=== PATIENT | male | born 1990 | race Caucasian/White ===

== ENCOUNTER 2024-04-19 16:04 | Outpatient (CLI) | payer OTHER, SELFPAY ==
--- NOTE | ~2024-04-19 | XR_ITS ---
EXAMINATION: XR abdomen/kub 1V DATE: 04/19/2024 16:28 INDICATION: Left lower quadrant abdominal pain. TECHNIQUE: A supine view of the abdomen on 2 radiographs was obtained. COMPARISON: None. FINDINGS: There are no dilated loops of bowel. There is a moderate volume of stool in the colon. Ther e are calcifications in the pelvis including 2 mm calcifications in the area of the distal ureters on either side. IMPRESSION: 1. Calcifications in the pelvis, probably phleboliths. Distal ureteral stone cannot be excluded on ei ther side. Reviewed, dictated and finalized at location A. PROJECTOR OPERATOR IMPRESSION: 1. Calcifications in the pelvis, probably phleboliths. Distal ureteral stone ca nnot be excluded on either side.
--- OUTSIDE RECORDS SUMMARY | 2024-04-19 16:41 | XMS_ITS | Referral Summary ---
Author Organization [facility] Address [address] [place] [address] Care Team Providers Care Alteration Worker Name Role Phone No, Physician Primary Care Provider [phone] Allergies No known active allergies Medications No known medications Active Problems No known active problems Social History Tobacco Use Types Packs/Day Years Used Date Smoking Tobacco: Never Smokeless Tobacco: Never Personal Safety Answer Date Recorded Getting School Help Needed Not on file 06/06 Sex and Gender Information Value Date Recorded Sex Assigned at Not on file Legal Sex Male 1:14 AM EDGING MACHINE OPERATOR Gender Identity Not on file Sexual Orientation Not on file Last Filed Vital Signs Vital Sign Reading Time Taken Comments Blood Pressure - - Pulse - - Temperature - - Respiratory Rate - - Oxygen Saturation - - Inhaled Oxygen Concentration - - Weight 90.7 kg (200 lb) 01/31/2020 5:50 PM EDGING MACHINE OPERATOR Height 182.9 cm (6') 01/31/2020 5:50 PM EDGING MACHINE OPERATOR Body Mass Index 27.12 01/31/2020 5:50 PM EDGING MACHINE OPERATOR Plan of Treatment Not on file Insurance [facility] Care Teams Alteration Worker Relationship Specialty Start Date End Date No, Physician PCP - General 01/31/20
--- OUTSIDE RECORDS SUMMARY | 2024-04-19 16:41 | XMS_ITS | Encounter Summary ---
Author Organization [facility] Address [address] [place] [address] Care Team Providers Care Truck Packer Name Role Phone Sienna Sloan MD Primary Care Provider [phone] Encounter Details Date Type Department Care Team (Late st Contact Info) Description 04/15/2024 External Device Data STL ABSTRACTION Provider, Abstract NO ADDRESS ON FILE Social History Tobacco Use Types Packs/Day Years Used Date Smoking Tobacco: Never Smokeless Tobacco: Never Comments:Used to use chewing tobacco in college Alcohol Use Standard Drinks/Week Comments Yes 7 (1 standard drink = 0.6 oz pur e alcohol) weekends Sex and Gender Information Value Date Recorded Sex Assigned at Not on file Legal Sex Male 3:30 PM CDT Gender Identity Not on file Sexual Orientation Not on file documented as of this encounter Plan of Treatment Upcoming Encounters Date Type Department Care Team (Late st Contact Info) Description 04/26/2024 8:30 AM BUNDLE BREAKER Office Visit [facility] [employer] [place] [address] [address] Reyna Elaine, ANP [address] [facility] [address] [facility] [address] [place] [address] documented as of this encounter Visit Diagnoses Not on filedocumented in this encounter Care Teams Truck Packer Relationship Specialty Start Date End Date Sienna Sloan MD [address] [place] [address] PCP - General Internal Medicine 03/26/24 documented as of this encounter
--- OUTSIDE RECORDS SUMMARY | 2024-04-19 16:41 | XMS_ITS | Clinical Summary ---
Author Organization [facility] [employer] Address [address] [address] Care Team Providers Care Complaint Investigations Officer Name Role Phone Sienna Sloan MD Primary Care Provider [phone] Allergies No known active allergies Medications sildenafiL (VIAGRA) 100 mg tabletIndication s:Other male erectile dysfunction Take 1 Tablet (100 mg) by mouth 1 time daily as needed for Erectile Dysfunction. 5 Tablet 4 Active ergocalciferol (VITAMIN D2) 50,000 unit capsuleIndicatio ns:Vitamin D deficiency Take 1 Capsule (50,000 Units) by mouth every 7 days. 12 Capsule 4 Active Active Problems Problem Noted Date Diagnosed Date Asymptomatic varicose veins 08/13/2022 Encounters Date Type Department Care Team Description 04/15/2024 External Device Data STL ABSTRACTION Provider, Abstract 03/31/2024 8:20 AM ENTRY LEVEL ACCOUNT REPRESENTATIVE Clinical Support [facility] [employer] [place] [address] [place] [address] LLQ abdominal pain 03/30/2024 Telephone [facility] [employer] [place] [address] [place] [address] Reyna Elaine ANP Follow Up 03/30/2024 Orders Only [facility] [employer] [place] [address] [place] [address] Reyna Elaine, ZIA 03/26/2024 1:00 PM ENTRY LEVEL ACCOUNT REPRESENTATIVE Office Visit [facility] [employer] [place] [address] [place] [address] Natalie Zapien, PADMINI LLQ abdominal pain (Primary Dx) from Last 3 Months Immunizations Immunization Administration Dates Next Due (ADACEL/BOOSTRIX)(10 YR UP) TDAP VACCINE, 0.5ML, IM 04/24/2021 Influenza Seasonal Unspecified Formulation IM Family History Medical History Relation Name Comments Asthma Brother Gregg Mejia No Known Problems Father Liver Cancer Maternal Grandfather Sonido Cash Lung Cancer Maternal Grandfather Sonido Cash Alzheimer's Disease Maternal Grandmother No Known Problems Mother Unknown Paternal Grandfather Unknown Paternal Grandmother Relation Name Status Comments Brother Gregg Mejia Alive Father Alive elevated psa Maternal Grandfather Sonido Cash Maternal Grandmother Alive Mother Alive Paternal Grandfather cirrhos is Paternal Grandmother Social History Tobacco Use Types Packs/Day Years [...] Sign Reading Time Taken Comments Blood Pressure 116/68 03/26/2024 12:57 PM ENTRY LEVEL ACCOUNT REPRESENTATIVE Pulse 77 03/26/2024 12:57 PM ENTRY LEVEL ACCOUNT REPRESENTATIVE Temperature 36.8 ??C (98.3 ??F) 03/26/2024 12:[address] Respiratory Rate 18 03/26/2024 12:57 PM ENTRY LEVEL ACCOUNT REPRESENTATIVE Oxygen Saturation 98% 03/26/2024 12:57 PM ENTRY LEVEL ACCOUNT REPRESENTATIVE Inhaled Oxygen Concentration - - Weight 93.9 kg (207 lb) 03/26/2024 12:57 PM ENTRY LEVEL ACCOUNT REPRESENTATIVE Height 180.3 cm (5' 11 ) 03/26/2024 12:57 PM ENTRY LEVEL ACCOUNT REPRESENTATIVE Body Mass Index 28.87 03/26/2024 12:57 PM ENTRY LEVEL ACCOUNT REPRESENTATIVE Plan of Treatment Upcoming Encounters Date Type Department Care Team (Late st Contact Info) Description 04/26/2024 8:30 AM ENTRY LEVEL ACCOUNT REPRESENTATIVE Office Visit [facility] at Work [employer] [place] [address] [place] [id number] Reyna Elaine, ANP [address] [place] [address] Health Maintenance Due Date Last Done Comments HEPATITIS B VACCINES (1 of 3 - 19+ 3-dose series) 02/12/2008 INFLUENZA VACCINE (#1) 2023 04/03/2021 COVID-19 Vaccine (2 - 2023- season) 2023 08/02/2020 Pre-Diabetes and Diabetes Screening 04/04/2026 04/04/2023, 09/03/2021 DTAP/TDAP/TD VACCINES (2 - Td or Tdap) 04/24/2031 04/24/2021 HPV VACCINES Aged Out No longer eligi ble based on patient's age to complete this topic Procedures Procedure Name Priority Date/Time Associated Diagnosis Comments CBC WITH DIFFERENTIAL Routine 03/31/2024 8:16 AM ENTRY LEVEL ACCOUNT REPRESENTATIVE LLQ abdominal pain COMPREHENSIVE METABOLIC PANEL Routine 03/31/2024 8:16 AM ENTRY LEVEL ACCOUNT REPRESENTATIVE LLQ abdominal pain C-REACTIVE PROTEIN Routine 03/31/2024 8: 16 AM ENTRY LEVEL ACCOUNT REPRESENTATIVE LLQ abdominal pain COMPREHENSIVE METABOLIC PANEL Routine 03/26/2024 1:23 PM ENTRY LEVEL ACCOUNT REPRESENTATIVE LLQ abdominal pain CBC WITH DIFFERENTIAL Routine 03/26/2024 1:23 PM ENTRY LEVEL ACCOUNT REPRESENTATIVE LLQ abdominal pain URINALYSIS WITH REFLEX CULTURE Routine 03/26/2024 1:23 PM ENTRY LEVEL ACCOUNT REPRESENTATIVE LLQ abdominal pain HEMOGLOBIN A1C Routine 04/04/2023 8:46 AM ENTRY LEVEL ACCOUNT REPRESENTATIVE Other male erectile dysfunction from Last 3 Months or Most Recently Relevant to Health Maintenance Results * CBC WITH DIFFERENTIAL (03/31/2024 8:16 AM ENTRY LEVEL ACCOUNT REPRESENTATIVE) Only the most recent of2 resultswithin the time period is included. WBC 5.0 3.8 - 10.8 Thousand/u L [facility] RBC 5.29 4.20 - 5.80 Million/uL [facility] HEMOGLOBIN 16.1 13.2 - 17.1 g/dL [facility] HEMATOCRIT 48.2 38.5 - 50.0 % [facility] MCV 91.1 80.0 - 100.0 fL [facility] MCH 30.4 27.0 - 33.0 pg [facility] MCHC 33.4 32.0 - 36.0 g/dL [facility] Comment: For adults, a slight decrease in the calculated MCHC value (in the range of 30 to 32 g/dL) is most likely not clinically significant; however, it should be interpreted with caution in correlation with other red cell parameters and the patient's clinical condition. RDW 11.8 11.0 - 15.0 % [facility] PLATELETS 241 140 - 400 Thousand/u L [facility] MPV 12.4 7.5 - 12.5 fL [facility] NEUTROPHIL ABSOLUTE 3,230 1,500 - 7,800 cells/uL [facility] LYMPHOCYTE ABSOLUTE 1,000 850 - 3,900 cells/uL [facility] MONOCYTE ABSOLUTE 520 200 - 950 cells/uL [facility] EOSINOPHIL ABSOLUTE 150 15 - 500 cells/uL [facility] BASOPHILS ABSOLUTE 100 0 - 200 cells/uL [facility] NEUTROPHIL 64.6 % [facility] LYMPHOCYTES 20.0 % [facility] MONOCYTE 10.4 % [facility] EOSINOPHILS 3.0 % [facility] BASOPHILS 2.0 % [facility] Comment: Test Performed at: [facility] [address] [place], [place] ??[phone] Tracie Albright MD Blood 03/31/2024 8:16 AM ENTRY LEVEL ACCOUNT REPRESENTATIVE 04/01/2024 6:25 AM ENTRY LEVEL ACCOUNT REPRESENTATIVE us Reyna Elaine ANP HEMATOLOGY ORDERABLES Final Result [facility] [phone] [facility] [address] [place] [address] * C-REACTIVE PROTEIN (03/31/2024 8:16 AM ENTRY LEVEL ACCOUNT REPRESENTATIVE) Pathologist [facility] CRP 7.7 <8.0 mg/L [facility] Comment: Test Performed at: [facility] [address] [place], [place] ??[phone] Tracie Albright MD Blood 03/31/2024 8:16 AM ENTRY LEVEL ACCOUNT REPRESENTATIVE 04/01/2024 6:25 AM ENTRY LEVEL ACCOUNT REPRESENTATIVE us Reyna Elaine [facility] CHEMISTRY ORDERABLES Final R esult [facility] [phone] [facility] [address] [place] [address] * (ABNORMAL) COMPREHENSIVE METABOLIC PANEL (03/31/2024 8:16 AM ENTRY LEVEL ACCOUNT REPRESENTATIVE) Only the most recent of2 resultswithin the time period is included. Pathologist [facility] GLUCOSE 67 65 - 99 mg/dL [facility] Comment: ? Fasting reference interval BUN 18 7 - 25 mg/dL [facility] CREATININE 1.10 0.60 - 1.26 mg/dL [facility] GFR 90 > OR = 60 mL/min/1. 73m2 [facility] BUN/CREAT RATIO SEE NOTE: 6 22 (calc) [facility] Comment: ?? Not Reported: BUN and Creatinine are within ?? reference range. ? SODIUM 140 135 - 146 mmol/L [facility] POTASSIUM 4.8 3.5 - 5.3 mmol/L [facility] CHLORIDE 103 98 - 110 mmol/L [facility] CO2 29 20 - 32 mmol/L [facility] CALCIUM 10.0 8.6 - 10.3 mg/dL [facility] TOTAL PROTEIN 7.0 6.1 - 8.1 g/dL [facility] ALBUMIN 4.6 3.6 - 5.1 g/dL [facility] GLOBULIN 2.4 1.9 - 3.7 g/dL (calc) [facility] ALBUMIN/GLOBULIN RATIO 1.9 1.0 - 2.5 (calc) [facility] BILIRUBIN TOTAL 0.6 0.2 - 1.2 mg/dL [facility] ALKALINE PHOSPHATASE 69 36 - 130 U/L [facility] AST 33 10 - 40 U/L [facility] ALT 77(H) 9 - 46 U/L [facility] Comment: Test Performed at: [facility] [address] [place], [place] ??[phone] Tracie Albright MD Blood 03/31/2024 8:16 AM ENTRY LEVEL ACCOUNT REPRESENTATIVE 04/01/2024 6:25 AM ENTRY LEVEL ACCOUNT REPRESENTATIVE us Reyna Elaine [facility] CHEMISTRY ORDERABLES Final R esult [facility] [phone] [facility] [address] [place] [address] * (ABNORMAL) URINALYSIS WITH REFLEX CULTURE (03/26/2024 1:23 PM ENTRY LEVEL ACCOUNT REPRESENTATIVE) COLOR UA YELLOW YELLOW [facility] CLARITY UA CLEAR CLEAR [facility] SPECIFIC GRAVITY UA 1.007 1.001 - 1.035 [facility] PH UA 7.0 5.0 - 8.0 [facility] GLUCOSE UA NEGATIVE NEGATIVE [facility] BILIRUBIN UA NEGATIVE NEGATIVE [facility] KETONES UA NEGATIVE NEGATIVE [facility] BLOOD UA NEGATIVE NEGATIVE [facility] PROTEIN UA NEGATIVE NEGATIVE [facility] NITRITE UA NEGATIVE NEGATIVE [facility] LEUKOCYTE ESTERASE UA NEGATIVE NEGATIVE [facility] WBC UA NONE SEEN < OR = 5 /HPF [facility] RBC UA NONE SEEN < OR = 2 /HPF [facility] EPITHELIAL CELLS, URINE NONE SEEN < OR = 5 /HPF [facility] BACTERIA UA NONE SEEN NONE SEEN /HPF [facility] HYALINE CAST 0-5(A) NONE SEEN /LPF [facility] URINE NOTE [facility] Comment: This urine was analyzed for the presence of WBC, RBC, bacteria, casts, and other formed elements. Only those elements seen were reported. URINE CULTURE [facility] Comment: NO CULTURE INDICATED Test Performed at: [place] [address] [place] ??[phone] Tracie Albright Urine URINE SPECIMEN OBTAINED BY CLEAN CATCH PROCEDURE / Unknown 03/26/2024 1:23 PM ENTRY LEVEL ACCOUNT REPRESENTATIVE 03/27/2024 Natalie Zapien [facility] URINE ORDERABLES Final Result [facility] [phone] [place] [address] [place] [address] * HEMOGLOBIN A1C (04/04/2023 8:46 AM ENTRY LEVEL ACCOUNT REPRESENTATIVE) HEMOGLOBIN A1C 4.8 <5.7 % of total Hgb [facility] Comment: For the purpose of screening for the presence of diabetes: <5.7% ? Consistent with the absence of diabetes 5.7-6.4% ?Consistent with increased risk for diabetes ?(prediabetes) > or =6.5% ??Consistent with diabetes This assay result is consistent with a decreased risk of diabetes. Currently, no consensus exists regarding use of hemoglobin A1c for diagnosis of diabetes in children. According to [place] Diabetes Association (ADA) guidelines, hemoglobin A1c <7.0% represents optimal control in non- diabetic patients. Different metrics may apply to specific patient populations. Standards of Medical Care in Diabetes(ADA). ?? ESTIMATED AVERAGE GLUCOSE (MG/DL) 91 mg/dL [facility] ESTIMATED AVERAGE GLUCOSE (MMOL/L) 5.0 mmol/L [facility] Comment: HbA1c performed on [employer] platform. Test Performed at: [facility] [address] [place] ??[address] Tracie Albright MD Blood 04/04/2023 8:46 AM ENTRY LEVEL ACCOUNT REPRESENTATIVE 04/05/2023 5:03 AM ENTRY LEVEL ACCOUNT REPRESENTATIVE Melba Chavez MD CHEMISTRY ORDERABLES Final Re sult [facility] [phone] [facility] [address] [place] [address] from Last 3 Months or Most Recently Relevant to Health Maintenance Insurance * Guarantor: [employer]) Account Type Relation to Patient Date of Phone Billing Address Corporate Employer ATTN: ANIBAL REDMOND [address] [address] ALLEGIAN OPEN ACCESS * Guarantor: [employer] Account Type Relation to Patient Date of Phone Billing Address Corporate Employer ATTN: ANIBAL REDMOND [address] [address] Care Teams Complaint Investigations Officer Relationship Specialty Start Date End Date Sienna Sloan MD [address] [place] [address] [place] [address] PCP - General Internal Medicine 03/26/24
--- OUTSIDE RECORDS SUMMARY | 2024-04-19 16:41 | XMS_ITS | Encounter Summary ---
Author Organization [facility] Address [address] [place] [address] Care Team Providers Care Meteorology Instructor Name Role Phone Sienna Sloan MD Primary Care Provider [phone] Reason for Referral * Radiology Services (Routine) - Pending Review Specialty Diagnoses / Procedures Referred By Sherri razo Referred To Contact Diagnoses LLQ abdominal pain Procedures XR ABDOMEN 1 VW Reyna Elaine ANP [address] [place] [address] Phone: tel: fax: Referral ID Status Reason Start Date Expiration Date V isits Requested Visits Authorized [id number] Pending Review 03/30/2024 04/30/2025 1 1 TER HELPER Reason for Visit * Reason Onset Date Comments Follow Up 03/30/2024 Encounter Details Date Type Department Care Team (Late st Contact Info) Description 03/30/2024 Telephone [facility] [employer] [place] [address] [place] [address] Reyna Elaine ANP [address] [place] [address] Follow Up Social History Tobacco Use Types Packs/Day Years [...] on file documented as of this encounter Miscellaneous Notes * Telephone Encounter - Reyna Elaine ANP - 03/30/2024 2:37 PM CST Called pt to review current symptoms Continued daily mild middle to L lower abd ache. Worse with need to have BM, sitting, or with full bladder. Ongoing 2 months. No fever, chills, urinary symptoms. Recent CBC, CMP and UA normal except for mild elevation in ALT. No alcohol in one month and non smoker. Takes fiber supplement daily x 6 months. Denies bulge, pain or pressure in L groin or testicle area. Recommend repeat CBC, and CMP. Add CRP. Appointment made for 03/30/24 Check KUB for retained stool load. If persists, reexamine and consider CT abdomen/ pelvis. The patient indicates understanding of these issues and agrees with the plan. TER HELPER documented in this encounter Plan of Treatment Upcoming Encounters Date Type Department Care Team (Late st Contact Info) Description 04/26/2024 8:30 AM PLASTER HELPER Office Visit [facility] [employer] [place] [address] [place] [address] Reyna Elaine ANP [address] [place] [address] Scheduled Orders Name Type Priority Associated Diagnoses Orde r Schedule XR ABDOMEN 1 VW Imaging Routine LLQ abdominal pain 1 Occurrences starting 03/30/2024 until 03/30/2025 documented as of this encounter Results * C-REACTIVE PROTEIN (03/31/2024 8:16 AM PLASTER HELPER) CRP 7.7 <8.0 mg/L [facility] Comment: Test Performed at: [facility] [address] [place] ??[phone] Tracie Albright MD Blood 03/31/2024 8:16 AM PLASTER HELPER 04/01/2024 6:25 AM PLASTER HELPER us Reyna Ebony Elaine ANP CHEMISTRY ORDERABLES Final R esult [facility] [phone] [facility] [address] [address], [place] [address] * (ABNORMAL) COMPREHENSIVE METABOLIC PANEL (03/31/2024 8:16 AM PLASTER HELPER) GLUCOSE 67 65 - 99 mg/dL [facility] Comment: ? Fasting reference interval BUN 18 7 - 25 mg/dL [facility] CREATININE 1.10 0.60 - 1.26 mg/dL [facility] GFR 90 > OR = 60 mL/min/1. 73m2 [facility] BUN/CREAT RATIO SEE NOTE: (calc) [facility] Comment: ?? Not [...] [facility] Comment: Test Performed at: [facility] [address] [place], [place] ??[phone] Tracie Albright MD Blood 03/31/2024 8:16 AM PLASTER HELPER 04/01/2024 6:25 AM PLASTER HELPER us Reyna Platte Chele [facility] CHEMISTRY ORDERABLES Final R esult [facility] [phone] [facility] [[email or web address] [facility] [address] [place] [address] * CBC WITH DIFFERENTIAL (03/31/2024 8:16 AM PLASTER HELPER) WBC 5.0 3.8 - 10.8 Thousand/u L [...] [facility] Comment: Test Performed at: [facility] [address] [place], [place] ??[phone] Tracie Albright MD Blood 03/31/2024 8:16 AM PLASTER HELPER 04/01/2024 6:25 AM PLASTER HELPER us Reyna Elaine ANP HEMATOLOGY ORDERABLES Final Result [facility] [phone] [facility] [address] [place] [address] documented in this encounter Visit Diagnoses Diagnosis LLQ abdominal pain- Primary Abdominal pain, left lower quadrant documented in this encounter Care Teams Meteorology Instructor Relationship Specialty Start Date End Date Sienna Sloan MD [address] [place] [address] [place] [address] PCP - General Internal Medicine 03/26/24 documented as of this encounter
--- OUTSIDE RECORDS SUMMARY | 2024-04-19 16:41 | XMS_ITS | Clinical Summary ---
Author Organization [facility] Address [address] [place] [address] Care Team Providers Care Dial Buffer Name Role Phone No, Physician Primary Care Provider [phone] Allergies No known active allergies Medications No known medications Active Problems No known active problems Surgical History Surgery Date Site/Laterality Comments APPENDECTOMY Family History Medical History Relation Name Comments Asthma Brother Relation Name Status Comments Brother Social History Tobacco Use Types Packs/Day Years Used Date Smoking Tobacco: Never Smokeless Tobacco: Never Personal Safety Answer Date Recorded Getting School Help Needed Not on file 06/06 Sex and Gender Information Value Date Recorded Sex Assigned at Not on file Legal Sex Male 1:14 AM EDI PROGRAMMER ANALYST Gender Identity Not on file Sexual Orientation Not on file Obstetrics History Last Filed Vital Signs Vital Sign Reading Time Taken Comments Blood Pressure - - Pulse - - Temperature - - Respiratory Rate - - Oxygen Saturation - - Inhaled Oxygen Concentration - - Weight 90.7 kg (200 lb) 01/31/2020 5:50 PM EDI PROGRAMMER ANALYST Height 182.9 cm (6') 01/31/2020 5:50 PM EDI PROGRAMMER ANALYST Body Mass Index 27.12 01/31/2020 5:50 PM EDI PROGRAMMER ANALYST Plan of Treatment Not on file Insurance [facility] Care Teams Dial Buffer Relationship Specialty Start Date End Date No, Physician PCP - General 01/31/20
== END 2024-04-19 16:05 | disposition home or self-care (01) ==
PROVIDERS: PCP Family Medicine; Visit Provider Nurse Practitioner Adult Health
DX: M85.88 Other specified disorders of bone density and structure, other site (principal)
CPT/HCPCS: 74018